=== PATIENT | female | born 1980 | race Asian ===

== ENCOUNTER 2016-07-23 09:20 | Outpatient (CLI) | payer OTHER ==
[~2016-07-23 09:20] MED LIST: TOPAMAX25 MG PO
[2016-07-23 09:36] LABS: PLATELET COUNT 254 K/uL (152-353)
[2016-07-23 10:07] LABS: POTASSIUM 3.8 mmol/L (3.6-5.2); SODIUM 138 mmol/L (136-145)
== END 2016-07-23 20:11 | disposition home or self-care (01) ==
LOC: LABW 09:20
PROVIDERS: Family Medicine
DX: R53.83 Other fatigue (principal); R63.0 Anorexia; E78.4 Other hyperlipidemia; E55.9 Vitamin D deficiency, unspecified
CPT/HCPCS: 36415; 80053; 80061; 81000; 82306; 82607; 84443; 85027

== ENCOUNTER 2017-09-25 13:12 | Emergency (ER) | payer OTHER ==
[~2017-09-25] VITALS: Ht 162.6 cm; Wt 73.0 kg
== END 2017-09-25 14:55 | disposition home or self-care (01) ==
LOC: ED 13:12
DX: S50.861A Insect bite (nonvenomous) of right forearm, initial encounter (principal); L08.9 Local infection of the skin and subcutaneous tissue, unspecified; W57.XXXA Bitten or stung by nonvenomous insect and other nonvenomous arthropods, initial encounter
CPT/HCPCS: 90471; 90715; 96372; 99283; J0696

== ENCOUNTER 2018-07-12 21:41 | Emergency (ER) | payer OTHER ==
[~2018-07-12] VITALS: Ht 162.6 cm; Wt 81.2 kg
[2018-07-12 22:50] VITALS: BP 154/80; TEMP 98.2
== END 2018-07-12 22:50 | disposition home or self-care (01) ==
LOC: ED 21:41
DX: M54.5 Low back pain (principal); N94.6 Dysmenorrhea, unspecified
CPT/HCPCS: 81000; 96372; 99282; J1885

== ENCOUNTER 2019-03-09 17:56 | Outpatient (CLI) | payer OTHER | END 2019-03-09 21:53 | disposition home or self-care (01) | LOC: RAD 17:56 | DX: S63.92XA Sprain of unspecified part of left wrist and hand, initial encounter (principal) ==

== ENCOUNTER 2019-07-02 07:07 | Outpatient (CLI) | payer OTHER ==
[2019-07-02 11:29] LABS: PLATELET COUNT 355 K/uL (152-353)
== END 2019-07-02 22:36 | disposition home or self-care (01) ==
LOC: LABW 07:07 → CT 07:07
PROVIDERS: Internal Medicine
DX: G43.909 Migraine, unspecified, not intractable, without status migrainosus (principal); D50.9 Iron deficiency anemia, unspecified; R55 Syncope and collapse
CPT/HCPCS: 36415; 83540; 83550; 85027

== ENCOUNTER 2019-07-09 07:46 | Outpatient (CLI) | payer OTHER ==
[2019-07-09 08:00] LABS: PLATELET COUNT 344 K/uL (152-353)
[2019-07-09 08:22] LABS: POTASSIUM 3.7 mmol/L (3.6-5.2)
== END 2019-07-09 19:37 | disposition home or self-care (01) ==
LOC: LABW 07:46
PROVIDERS: Internal Medicine
DX: R55 Syncope and collapse (principal); R51 Headache
CPT/HCPCS: 36415; 80053; 80061; 82306; 84443; 85027

== ENCOUNTER 2019-07-16 09:37 | Outpatient (CLI) | payer OTHER | END 2019-07-16 19:46 | disposition home or self-care (01) | LOC: RESP 09:37 | DX: R55 Syncope and collapse (principal); R51 Headache | CPT/HCPCS: 93306 ==

== ENCOUNTER 2019-07-20 07:49 | Outpatient (CLI) | payer OTHER ==
[2019-07-20 08:27] LABS: PLATELET COUNT 292 K/uL (152-353)
== END 2019-07-20 21:32 | disposition home or self-care (01) ==
LOC: MRI 07:49
PROVIDERS: Internal Medicine
DX: R55 Syncope and collapse (principal); G43.909 Migraine, unspecified, not intractable, without status migrainosus; D50.9 Iron deficiency anemia, unspecified
CPT/HCPCS: 36415; 83540; 83550; 85027